=== PATIENT | male | born 1970 | race Caucasian/White ===

== ENCOUNTER → 2020-12-10 | Day surgery (SDC) | payer BC ==
[~2020-12-10] MED LIST: Lactated Ringers 1,000 ML IV SCH
--- NOTE | 2020-12-13 08:13 | OR ---
DATE OF OPERATION: 12/10/2020 PREOPERATIVE DIAGNOSIS: SCREENING COLONOSCOPY. POSTOPERATIVE DIAGNOSIS: SCREENING COLONOSCOPY. SURGEON: Wallace Love MD PROCEDURE: FULL-LENGTH COLONOSCOPY. ANESTHESIA: MAC. COMPLICATIONS: None. SPECIMEN: None. FINDINGS: Normal full-length colonoscopy. RECOMMENDATIONS: Followup colonoscopy in 10 years. INDICATIONS: The patient was seen by his primary provider, Alan Falcon and was sent for a screening colonoscopy due to his age. DESCRIPTION OF PROCEDURE: The patient was prepped and draped, placed in the left lateral decubitus position. Digital rectal exam was done. No obstructing lesions were found, prostate normal. Lubricated Olympus colonoscope was inserted and easily advanced to the cecum. Direct visualization of the ileocecal valve and appendiceal orifice was accomplished. The bowel prep was excellent. Upon withdrawal of the scope, the entire colon was visualized thoroughly. There were no polyps, masses, ulceration, or bleeding sites. No vascular abnormalities or signs of colitis. No diverticula. The rectal vault was benign. Retroflexion showed no perianal lesions. Air was suctioned and the scope removed without complication. DOUG/JAMAAL /[id number]
== END ==
LOC: CC.SDS 11:58
PROVIDERS: ATTEND Family Medicine
DX: Z12.11 Encounter for screening for malignant neoplasm of colon (principal); Z79.82 Long term (current) use of aspirin; Z79.899 Other long term (current) drug therapy; Z98.890 Other specified postprocedural states
CPT/HCPCS: J7120